=== PATIENT | female | born 1960 | race Caucasian/White ===

== ENCOUNTER → 2017-05-07 | Outpatient (CLI) | payer BC ==
[~2017-05-07] MED LIST: ANUSOL-HC SUPPO25 MG RC; ASPIRIN 32325 MG/TAB PO; AVAPRO TAB150 MG/TAB PO; CALCIUM1 CAP PO; CLINDAMYCIN HC300 MG PO; COLACE 100100 MG/CAP PO; COZAAR 50MG50 MG/TAB PO; COZAAR50 MG PO; DETROL; GENTLE LAXATIVE10 MG RC; MOTRIN 200200 MG/TAB PO; MVI; NORCO PO; OXY IR5 MG PO; PERCOCET 5/321 UDTAB PO; PREMARIN0.625 MG PO; PREMARIN1.25 MG PO; PREPARATION H 81 SUP RC; TRAMADOL50 MG PO; TYLENOL 325MG325 MG PO; VITAMIN C500 MG PO; VITAMIN E1000 U/CAP PO; ZINC NATURAL50 MG PO; ZOFRAN8 MG PO
== END ==
LOC: MC.RAD 08:33
DX: Z12.31 Encounter for screening mammogram for malignant neoplasm of breast (principal)

== ENCOUNTER → 2018-05-09 | Outpatient (CLI) | payer BC | LOC: MC.RAD 06:53 | DX: Z12.31 Encounter for screening mammogram for malignant neoplasm of breast (principal) ==

== ENCOUNTER 2019-01-17 23:12 | Emergency (ER) | payer BC ==
[~2019-01-17] VITALS: Ht 165.1 cm; Wt 68.2 kg
[2019-01-17 23:24] VITALS: BP 137/84; PULSE 67; TEMP 98.9
[2019-01-17 23:56] LABS: COLLECTION METHOD CLEAN CATCH
[2019-01-18 00:11] LABS: PH 6 (5-8); SQUAMOUS EPITHELIAL None Seen /hpf; URINE APPEARANCE Hazy; URINE BACTERIA Rare /hpf; URINE BILIRUBIN Negative (NEGATIVE); URINE BLOOD 2+ (NEGATIVE); URINE COLOR Straw; URINE GLUCOSE Negative (NEGATIVE); URINE KETONE Negative (NEGATIVE); URINE LEUKOCYTE ESTERASE 3+ (NEGATIVE); URINE NITRATE Negative (NEGATIVE); URINE PROTEIN(semi-quant) Negative (NEGATIVE); URINE RBC 0-2 /hpf; URINE UROBILINOGEN Negative (NEGATIVE)
[2019-01-18] MEDS ORDERED: OMNICEF 300MG300 MG PO (00:34)
== END 2019-01-18 00:45 | disposition home or self-care (01) ==
LOC: COL.ER 23:12
PROVIDERS: Nurse Practitioner
DX: N39.0 Urinary tract infection, site not specified (principal); Z90.710 Acquired absence of both cervix and uterus; Z87.442 Personal history of urinary calculi

== ENCOUNTER → 2019-08-01 | Outpatient (CLI) | payer BC ==
[~2019-08-01] MED LIST changes: +OMNICEF 300MG300 MG PO
== END ==
LOC: MC.RAD 14:15
DX: Z12.31 Encounter for screening mammogram for malignant neoplasm of breast (principal)

== ENCOUNTER → 2020-08-02 | Outpatient (CLI) | payer BC | LOC: MC.RAD 07:07 | DX: Z12.31 Encounter for screening mammogram for malignant neoplasm of breast (principal) ==

== ENCOUNTER → 2021-06-02 | Outpatient (CLI) | payer BC ==
[~2021-06-02] MED LIST changes: +COZAAR 25MG25 MG/TAB PO; +MULTIVITAMIN FO1 CAP PO
[2021-06-02 12:24] LABS: HEMATOCRIT 43.5 % (37.0-47.0); HEMOGLOBIN 14.5 g/dl (12.5-16.0); MEAN CELL VOLUME 92 fl (80.0-100.0); MEAN CORPUSCULAR HEMOGLOBIN 31 pg (27.0-31.0); MEAN CORPUSCULAR HGB CONC 33 g/dl (33.0-37.0); MEAN PLATELET VOLUME 10.2 fl (7.4-10.4); PLATELET COUNT 249 K/mm3 (130-400); RED BLOOD COUNT 4.72 M/mm3 (4.10-5.30); REDCELL DISTRIBUTION WIDTH-CV 12.6 % (11.5-14.5)
[2021-06-02 12:45] LABS: ERYTHROCYTE SEDIMENTATION RATE 6 mm/hr (0-30)
== END ==
LOC: COL.LAB 11:39
PROVIDERS: Nurse Practitioner
DX: M25.561 Pain in right knee (principal)

== ENCOUNTER 2021-07-25 09:43 | Day surgery (SDC) | payer BC ==
[~2021-07-25] VITALS: Ht 165.1 cm; Wt 83.3 kg
[~2021-07-25 09:43] MED LIST changes: -COZAAR 25MG25 MG/TAB PO; -MULTIVITAMIN FO1 CAP PO
[2021-07-25 10:56] VITALS: BP 108/80; PULSE 85; TEMP 98.1
[2021-07-25] MEDS ORDERED: MULTIVITAMIN FO1 CAP PO (11:09)
[2021-07-25] MEDS ORDERED: COZAAR 25MG25 MG/TAB PO (11:10)
[2021-07-25 12:05] VITALS: BP 113/76; PULSE 70
--- NOTE | 2021-07-25 12:05 | NUR ---
Pt to [facility] via cart from ENDO. Pt awake and alert. Ambulates to recliner with stand by assistance. Pt denies pain or nausea. Water and muffin given per pt request. Daughter in room. Call light within reach.
[2021-07-25 12:20] VITALS: BP 123/67; PULSE 74
--- NOTE | 2021-07-25 12:20 | NUR ---
Pt tolerating po food and fluids without difficulties. Denies needs. Call light within reach.
[2021-07-25 12:30] VITALS: BP 118/67; PULSE 74
--- NOTE | 2021-07-25 12:30 | NUR ---
Discharge instructions reviewed. Pt voices understanding. IV site discontinued with all parts intact. Pt up to dress. Call light within reach.
--- NOTE | 2021-07-25 12:45 | NUR ---
Pt escorted to private car via wheel chair. Pt accompanied home by her daughter.
== END 2021-07-25 12:45 | disposition home or self-care (01) ==
LOC: SDCO 09:43
DX: Z12.11 Encounter for screening for malignant neoplasm of colon (principal); Z80.0 Family history of malignant neoplasm of digestive organs; K57.30 Diverticulosis of large intestine without perforation or abscess without bleeding; I10 Essential (primary) hypertension; Z79.899 Other long term (current) drug therapy
CPT/HCPCS: G0105; J2704; J7030

== ENCOUNTER → 2021-08-04 | Outpatient (CLI) | payer BC ==
[~2021-08-04] MED LIST changes: +COZAAR 25MG25 MG/TAB PO; +MULTIVITAMIN FO1 CAP PO
== END ==
LOC: MC.RAD 06:59
DX: Z12.31 Encounter for screening mammogram for malignant neoplasm of breast (principal)

== ENCOUNTER → 2023-01-20 | Outpatient (CLI) | payer OTHER | LOC: COL.LAB 07:21 | DX: M79.661 Pain in right lower leg (principal) ==

== ENCOUNTER 2023-08-11 10:38 | Outpatient (RCR) | payer OTHER | END 2023-08-22 | disposition home or self-care (01) | LOC: WSOH | DX: M25.561 Pain in right knee (principal); M79.644 Pain in right finger(s); I10 Essential (primary) hypertension; W10.8XXD Fall (on) (from) other stairs and steps, subsequent encounter; Y99.0 Civilian activity done for income or pay ==

== ENCOUNTER → 2023-08-20 | Outpatient (CLI) | payer BC | LOC: MC.RAD 13:15 | DX: Z12.31 Encounter for screening mammogram for malignant neoplasm of breast (principal) ==

== ENCOUNTER → 2024-06-23 | Outpatient (CLI) | payer BC | LOC: MC.RAD 06:52 | DX: Z12.31 Encounter for screening mammogram for malignant neoplasm of breast (principal) ==